=== PATIENT | female | born 1995 | race Caucasian/White ===

== ENCOUNTER 2017-03-14 12:56 | Emergency (ER) | payer OTHER, BC ==
[~2017-03-14] VITALS: Ht 154.9 cm; Wt 65.9 kg
[2017-03-14 12:58] VITALS: BP 127/71
[2017-03-14] MEDS ORDERED: PERCOCET 5MG/325MG TAB PO ONE (14:00)
[2017-03-14] MEDS ORDERED: IBUPROFEN 600 MG TAB PO ONE (14:00)
== END 2017-03-14 14:11 | disposition home or self-care (01) ==
LOC: M ED 12:56
DX: K02.9 Dental caries, unspecified (principal); F17.210 Nicotine dependence, cigarettes, uncomplicated

== ENCOUNTER 2017-03-25 10:52 | Emergency (ER) | payer OTHER, BC ==
[~2017-03-25] VITALS: Ht 154.9 cm; Wt 67.8 kg
[2017-03-25 10:52] VITALS: BP 121/82
[2017-03-25] MEDS ORDERED: AMOX500C PO (11:13)
[2017-03-25] MEDS ORDERED: HYDR-3713 PO (11:13)
== END 2017-03-25 11:20 | disposition home or self-care (01) ==
LOC: M ED 10:52
DX: K02.9 Dental caries, unspecified (principal); F17.210 Nicotine dependence, cigarettes, uncomplicated